=== PATIENT | male | born 1985 | race Caucasian/White ===

== ENCOUNTER 2024-09-20 09:21 | Outpatient (CLI) | payer OTHER | END 2024-09-20 09:30 | disposition home or self-care (01) | LOC: RAD 09:21 | PROVIDERS: ATTEND Specialist | DX: S62.609A Fracture of unspecified phalanx of unspecified finger, initial encounter for closed fracture (principal); X58.XXXA Exposure to other specified factors, initial encounter; Y93.9 Activity, unspecified; Y92.9 Unspecified place or not applicable; Y99.9 Unspecified external cause status ==